=== PATIENT | male | born 1950 | race Caucasian/White ===

== ENCOUNTER 2018-11-19 08:17 | Inpatient (IN) | payer OTHER, MEDICARE ==
[2018-10-29 09:24] LABS: ABSOLUTE EOSINOPHILS 0.1 thou/uL (0.0-0.7); ABSOLUTE LYMPHOCYTES 1.2 thou/uL (0.8-5.3); ABSOLUTE MONOCYTES 0.3 thou/uL (0.0-1.2); ABSOLUTE NEUTROPHILS 3.1 thou/uL (1.6-8.1); EOSINOPHILS 1.6 %; HEMATOCRIT 40.9 % (42.0-52.0); HEMOGLOBIN 14.1 gm/dL (14.0-18.0); LYMPHOCYTES 25.6 %; MCH 31.8 pg (26.0-34.0); MCHC 34.5 g/dL (28.0-37.0); MCV 92.3 fL (80.0-100.0); MONOCYTES 7.2 %; MPV 7.1 fl. (7.2-11.1); NUCLEATED RBCS 0 /100WBC; PLATELET COUNT* 236 thou/uL (150-400); POLYS 64.6 %; RBC 4.43 mil/uL (4.50-6.00); RDW-CV 13.7 % (10.5-14.5); WBC 4.8 thou/uL (4.0-11.0)
[2018-10-29 09:30] LABS: APTT 24.9 Seconds (25.0-31.3)
[2018-10-29 09:32] LABS: ALBUMIN 3.8 g/dL (3.4-5.0); CALCIUM 9.3 mg/dL (8.5-10.1); CREATININE 0.9 mg/dL (0.6-1.3); POTASSIUM 4.2 mmol/L (3.5-5.1); TOTAL BILIRUBIN 0.8 mg/dL (<0.1-1.0); TOTAL PROTEIN 7.3 g/dL (6.4-8.2)
[2018-10-29 11:22] LABS: ESR (SEDRATE) 14 mm/hr (0-20)
--- NOTE | 2018-10-29 14:04 | EKG ---
[place] [address] ELECTROCARDIOGRAM REPORT Name: DIANERADHA Knight JR Room: [facility].#: [id number] Admission: Attend Phys: Kevin Cunningham DO Discharge: Date of : 50 Report #: [id number] THIS REPORT FOR: //name// [facility] Test Date: 2018-10-29 Test Time: 09:20:59 Pat Name: RADHA CONTRERAS Department: Room: Gender: Sourcing Engineer: : 1950 Requested By: Kevin Cunningham Order Number: [id number] Reading MD: Woodrow Azar Measurements Intervals Ellinger Rate: 81 P: 66 DE: 200 QRS: 12 QRSD: 91 T: 58 QT: 378 QTc: 439 Interpretive Statements Sinus rhythm Ventricular bigeminy No previous ECG available for comparison Electronically Signed On 10-29-2018 14:04:23 CDT by Woodrow Azar [email or web address] <ELECTRONICALLY SIGNED> By: Woodrow Azar MD, [facility] 10/29/18 1404 0920 0920 Woodrow Azar MD, FACC /EPI
[~2018-11-19] VITALS: Ht 188 cm; Wt 93.0 kg
[~2018-11-19 08:17] MED LIST: FISH OIL 1,2001 EAC6 PO; GINGER ROOT550 MG PO; MULTIVITAMINS1 EAC7 PO; NAPROSYN500 MG PO; TURMERIC500 M2 PO; VITAMIN D3400 UNI2 PO; ZOCOR20 MG PO
[2018-11-19 13:38] VITALS: BP 127/69
[2018-11-19 15:30] VITALS: BP 125/67
--- NOTE | 2018-11-19 15:30 | NUR ---
ADMIT NOTE - PT ARRIVED FROM PACU AT THIS TIME. AT BEDSIDE. SEE DOCUMENTATION. DRESSING C/D/I. WILL CONTINUE TO MONITOR.
[2018-11-20] VITALS (10 sets, daily range): BP systolic 76–127; BP diastolic 35–62
[2018-11-20 04:13] LABS: HEMATOCRIT 33.8 % (42.0-52.0); HEMOGLOBIN 11.4 gm/dL (14.0-18.0)
--- NOTE | 2018-11-20 05:15 | NUR ---
PT ALERT AND ORIENTED. VITALS STABLE WITH O2 BY NC. MEDS, FLUID GIVEN ORDERED. PAIN CONTROLLED WITH PO MEDS. NO VOIDING ISSUES, DRESSING TO LT HIP CLEAN AND DRY. PT DENIED NAUSEA OR VOMITING. AT BEDSIDE. WILL CONTINUE TO MONITOR.
[2018-11-20] MEDS ORDERED: ELIQUIS5 MG PO (10:07)
[2018-11-20] MEDS ORDERED: OXYCODONE HCL 55 MG PO (10:08)
--- NOTE | 2018-11-20 10:54 | NUR ---
THERAPY WORKED WITH PT. DID WELL SITTING UP. WHEN ATTEMPTING TO STAND PT GOT DIZZY AND STATED TO FAINT ON TO THE BED. DID NOT FALL. DID NOT HIT ANY EXTREMITIES. PT CURRENTLY STABLE. YOU CALL SENT TO DR. GONZALEZ CHARTED.
--- NOTE | 2018-11-20 11:05 | NUR ---
REVIEWED STUDENT NURSE CHARTING AND AGREE.
--- NOTE | 2018-11-20 17:06 | NUR ---
SW met with pt and pt to complete initial assessment, introduce self, and SW role. Pt lives at home with , independent and also has a son who lives with them who could be of assistance if needed. Pt will not have HH services at co. Pt has a rolling walker at home. SW discussed Eliquis with pt and he was not concerned about rx coverage at this time; SW discussed possible rx assistance with copay if needed through Eliquis rx program. Possible for pt to dc home tomorrow depending on how pt does with mobility/safety.
--- NOTE | 2018-11-20 17:16 | NUR ---
PT A&Ox4. NEW IV PLACED IN L FA. PAIN CONTROLLED WITH OXY IR. DENIED VOMITING. HAS HAD ORTHOSTATIC HYPOTENSION, VITALS CHARTED IN ALL POSITIONS. GOT UP TO CHAIR ON 2ND ROUND OF THERAPY. NOT CLEARED BY THERAPY TO DC HOME, DR ARMENDARIZ RESIDENT NOTIFIED. DC TOMORROW IF COMPLETES STAIRS. FALL PRECAUTIONS IN PLACE CALL LIGHT WITHIN REACH. WILL CONTINUE TO MONITOR.
[2018-11-21] VITALS: BP 104/58
[2018-11-21 03:56] LABS: HEMATOCRIT 29.9 % (42.0-52.0); HEMOGLOBIN 10.5 gm/dL (14.0-18.0)
[2018-11-21 04:00] VITALS: BP 127/55
--- NOTE | 2018-11-21 04:34 | NUR ---
ASSUMED CARE OF PT AT 0300. PLAN FOR PT TO DISCHARGE TO HOME TODAY.
[2018-11-21 07:30] VITALS: BP 110/47
[2018-11-21] MEDS ORDERED: SENNA S TABLET1 EACH PO (12:59)
--- NOTE | 2018-11-21 13:34 | NUR ---
ASSUMED CARE OF PATIENT AT APPROX 0730. ALERT AND ORIENTED X4. ASSESSMENT COMPLETED AND CHARTED. VSS ON ROOM AIR. PAUN MINIMAL AND MANAGED WITH ORAL MEDICATION. PATIENT WORKED WELL WITH THERAPIES AND PROGRESSED TOWARD GOALS. PATIENT DISCHARGED AT 1330 WITH ALL PERSONAL BELONGINGS, PRESCRIPTIONS AND DISCHARGE INFORMATION.
== END 2018-11-21 13:30 | disposition home or self-care (01) | DRG 470 ==
LOC: M.SUR → M.TBA 13:04 → M.ORTHSURG 15:33
PROVIDERS: Orthopaedic Surgery; ADMIT Internal Medicine
PROC: 0SRB04A Replacement of Left Hip Joint with Ceramic on Polyethylene Synthetic Substitute, Uncemented, Open Approach (ICD-10-PCS; principal; 2018-11-19)
DX: M16.12 Unilateral primary osteoarthritis, left hip (principal); E78.00 Pure hypercholesterolemia, unspecified; I95.1 Orthostatic hypotension; Z90.49 Acquired absence of other specified parts of digestive tract; Z87.891 Personal history of nicotine dependence; Z79.899 Other long term (current) drug therapy; Z88.8 Allergy status to other drugs, medicaments and biological substances

== ENCOUNTER 2019-02-15 06:22 | Inpatient (IN) | payer OTHER ==
[2019-02-04 08:50] LABS: ABSOLUTE BASOPHILS 0.1 thou/uL (0.0-0.2); ABSOLUTE EOSINOPHILS 0.1 thou/uL (0.0-0.7); ABSOLUTE LYMPHOCYTES 1.3 thou/uL (0.8-5.3); ABSOLUTE MONOCYTES 0.3 thou/uL (0.0-1.2); ABSOLUTE NEUTROPHILS 2.5 thou/uL (1.6-8.1); BASOPHILS 1.2 %; EOSINOPHILS 2.2 %; HEMATOCRIT 42.6 % (42.0-52.0); HEMOGLOBIN 14.6 gm/dL (14.0-18.0); LYMPHOCYTES 30.6 %; MCH 30.9 pg (26.0-34.0); MCHC 34.2 g/dL (28.0-37.0); MCV 90.3 fL (80.0-100.0); MONOCYTES 7.1 %; MPV 6.7 fl. (7.2-11.1); NUCLEATED RBCS 0 /100WBC; PLATELET COUNT* 236 thou/uL (150-400); POLYS 58.9 %; RBC 4.72 mil/uL (4.50-6.00); RDW-CV 14.4 % (10.5-14.5); WBC 4.3 thou/uL (4.0-11.0)
[2019-02-04 08:59] LABS: APTT 23.8 Seconds (25.0-31.3); PROTIME 9.9 Seconds (9.20-11.50)
[2019-02-04 09:09] LABS: ALBUMIN 3.7 g/dL (3.4-5.0); CALCIUM 9.5 mg/dL (8.5-10.1); CREATININE 0.9 mg/dL (0.6-1.3); POTASSIUM 4.1 mmol/L (3.5-5.1); TOTAL BILIRUBIN 0.4 mg/dL (<0.1-1.0); TOTAL PROTEIN 7.4 g/dL (6.4-8.2)
[2019-02-04 10:33] LABS: ESR (SEDRATE) 10 mm/hr (0-20)
[~2019-02-15] VITALS: Ht 188 cm; Wt 93.0 kg
[~2019-02-15 06:22] MED LIST changes: +ELIQUIS5 MG PO; +OXYCODONE HCL 55 MG PO; +SENNA S TABLET1 EACH PO
[2019-02-15 07:09] VITALS: BP 142/80
[2019-02-15 13:19] VITALS: BP 121/51
--- NOTE | 2019-02-15 13:27 | NUR ---
PT ALERT AND ORIENTED AND DROWSY. PT ON 2 LITERS O2 WITH CAPNO. HEART RATE REGULAR. PULSES 2+ ALL EXTREMITIES. LUNGS CLEAR AND DIMINISHED. LT FA IV WITH LR AT 80. UP WITH ASSIST 1-2 WALKER GAIT BELT, WBAT. IVCE PACK TO RT HIP, DRESSING C/D/I. PT DENIES PAIN, STATES FEELS DIZZY.PT EDUCATED ON CALLING OUT WHEN NEEDING PAIN MEDS. FALL RISK PRECAUTIONS IN PLACE. HOURLY ROUNDING COMPLETED. WILL CONTINUE TO MONITOR.
[2019-02-15] MEDS ORDERED: HYDROCODON-ACE1 EAC5 (13:48)
[2019-02-15 15:48] VITALS: BP 108/49
--- NOTE | 2019-02-15 16:13 | OP ---
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 POSTOPERATIVE DIAGNOSIS: Advanced degenerative joint disease of the right hip. OPERATION: Right total hip arthroplasty. SURGEON: Kevin Cunningham DO SAND SHOVELER: Gris Birch PA-C SECOND SAND SHOVELER: Rohan Grant DO THIRD SAND SHOVELER: Charles Cardenas DO ANESTHESIA: General endotracheal. COMPLICATIONS: None. ANTIBIOTICS: 2 g IV Ancef was given preoperatively within 30 minutes of incision. ESTIMATED BLOOD LOSS: 300 mL. IMPLANTS: Biomet G7 total hip system was used with the following components: A 58 mm acetabular component, a 40 mm acetabular liner, 40 mm ceramic head with a -3 neck length, a 17 x 119 high offset Taperloc micro femoral component and a 6.5 x 30 screw and a 6.5 x 25 mm screw, also 2 grams of vancomycin powder topically, 1 gram of TXA intravenously. INDICATIONS FOR PROCEDURE: The patient is a pleasant 68-year-old male who is followed in orthopedic clinic regarding his bilateral hip pain with DJD. He has previously undergone hip arthroplasty and is doing fairly well in this regard. He is here today for elective operation regarding his right hip, Risks and complications have been discussed in detail with the patient including, but not limited to neurovascular damage, infection, fracture, chronic pain, leg length discrepancy, failure of the prosthesis, recall of the prosthesis, allergy developed to the prosthesis, deep vein thrombosis, pulmonary emboli, [place] [address] OPERATIVE REPORT Name: RADHA CONTRERAS JR Room: [address] [place] [facility]#: [id number] Admission: 02/15/19 Attend Phys: Gerson Guerrero Discharge: Date of : 50 Report #: [id number] infarction, rhabdomyolysis, and need for further surgery, blood loss, blood transfusion, reaction to anesthesia and its risks and complications were discussed by the Anesthesia team. Signed informed consent has been attached to the chart. His hip was marked preoperatively for the timeout technique. DESCRIPTION OF PROCEDURE: The patient was taken to the operative holding suite and placed on the Minster table in the supine position where general anesthesia was then induced. Right hip was then sterilely prepped and draped in the usual sterile fashion. A time-out was then performed to confirm that our safety checklist has been completed. Incision was made approximately 2 cm posterior and distal to the ASIS roughly 8 cm in length. Incision was carried through the skin and subcutaneous tissue down to the level of the tensor fascia. Tensor fascia was then incised in line with the skin incision. This interval was between the sartorius and tensor fascia serafin, it was then developed bluntly. Circumflex vessels were identified and treated with the Aquamantys. Dissection was then carried down to the anterior capsule. Appropriate retractors were placed. Capsule was then treated with the Aquamantys and resected. Femoral neck was then cut with a saw in a napkin ring technique. This was then removed using bone tenaculums as well as the femoral head. Acetabulum was prepared by removing the labrum. The acetabulum was then reamed with the 57 mm reamer, which left with a nice bleeding bone bed. The wound was copiously irrigated. The final implant was then placed, correct alignment was maintained with the external guide. This was confirmed with C-arm fluoroscopy. The screw holes were drilled and appropriate sized screws were then placed. Once again, C-arm fluoroscopy was used to confirm appropriate positioning. We then proceeded to place the high wall liner with a high wall facing anterior superiorly. This was then impacted into position and confirmed to be locked in. Retractors were then replaced. We proceeded next to the femoral portion of the procedure. Proximal femur was brought into view with appropriate alignment to the Minster table and retractors. The proximal femur was prepared with a box osteotome followed by the rat tail broach. It was then sequentially broached up to the appropriate size. This was checked with the trial reduction. Intraoperative x-rays and stress examination with range of motion. Once the appropriate size was determined, the final component was obtained, placed on the back table. Copious irrigation carried out throughout the incision. Vancomycin powder was sprinkled topically throughout the incision and the final stem was impacted firmly into place. A reduction was performed with the appropriate size head and neck and stability was once again checked and found to be extremely stable throughout the entire arc of motion. Steam Powerplant Supervisor intraoperative x-rays show excellent alignment, excellent size, no fractures and appropriate leg length for this patient. The irrigation carried out for the final time. The incision was closed with #1 Quill in a running fashion on the tensor fascia. The skin was reapproximated with 2-0 Monocryl subcutaneous followed by 3-0 Stratafix subcuticular suture. Skin was reinforced with skin glue. A Mepilex dressing was applied followed by the thigh high GILBERT hose. The patient tolerated the procedure well and was taken to the PACU in stable condition. [place] [address] OPERATIVE REPORT Name: RADHA CONTRERAS JR Room: [address] [place] ..#: [id number] Admission: 02/15/19 Attend Phys: Gerson Guerrero Discharge: Date of : 50 Report #: [id number] were encountered. No specimens were utilized. ATTESTATION: Dr. Cunningham was present for the entirety of the procedure. <ELECTRONICALLY SIGNED> By: Kevin Cunningham DO 02/15/19 1613 1012 1035Kevin Cunningham DO /nt
[2019-02-15 16:37] VITALS: BP 108/49
[2019-02-15] MEDS ORDERED: ELIQUIS2.5 MG PO (16:44)
[2019-02-15] MEDS ORDERED: TRAMADOL 50 MG50 MG PO (16:45)
[2019-02-15] MEDS ORDERED: OXYCODONE HCL 55 MG PO (16:47)
--- NOTE | 2019-02-15 17:18 | NUR ---
PT GIVEN DISCHARGE INFORMATION, CARE NOTES, AND PRESCRIPTIONS. IV [id number]. TELEPHONE DISCHARGE ORDERS FROM [facility]. PT BELONGINGS GATHERED. PT LEFT VIA WHEELCHAIR WITH NURISNG STAFF TO HOME. FALL RISK PRECAUTIONS IN PLACE. HOURLY ROUNDING COMPLETED.
[2019-02-15 17:40] VITALS: BP 108/49
== END 2019-02-15 17:40 | disposition home or self-care (01) | DRG 470 ==
LOC: M.SUR 06:22 → M.3W 10:03 → M.TBA 10:03 → M.3W 11:10 → M.SUR 11:40 → M.3W 17:40
PROVIDERS: Orthopaedic Surgery; ADMIT Internal Medicine
PROC: 0SR903A Replacement of Right Hip Joint with Ceramic Synthetic Substitute, Uncemented, Open Approach (ICD-10-PCS; principal; 2019-02-15)
DX: M16.11 Unilateral primary osteoarthritis, right hip (principal); E78.00 Pure hypercholesterolemia, unspecified; F11.90 Opioid use, unspecified, uncomplicated; Z91.040 Latex allergy status; Z91.048 Other nonmedicinal substance allergy status; Z90.89 Acquired absence of other organs; Z87.891 Personal history of nicotine dependence